=== PATIENT | male | born 1995 | race Caucasian/White ===

== ENCOUNTER 2019-01-27 01:57 | Emergency (ER) | payer BC, MEDICAID ==
[~2019-01-27] VITALS: Ht 170.2 cm; Wt 89.0 kg
--- NOTE | 2019-01-27 02:12 | NUR ---
ASSESSMENT MADE. SEEN BY PA. PATIENT PICKED UP FROM [facility] C/O VOMITING AND UNABLE TO AMBULATE DUE TO ALCOHOL INTOXICATION.
--- NOTE | 2019-01-27 02:31 | NUR ---
PT RESTING ON GURNEY WITH EYES CLOSED, NAD, RESPIRATIONS EVEN AND UNLABORED, MONITORS IN PLACE, SIDERAILS UP X2, CALL LIGHT WITHIN REACH
--- NOTE | 2019-01-27 03:24 | NUR ---
PT RESTING ON GURNEY WITH EYES CLOSED, EQUAL CHEST RISE/FALL OBSERVED, MONITORS IN PLACE, SIDERAILS UP X2, CALL LIGHT WITHIN REACH
--- NOTE | 2019-01-27 04:21 | NUR ---
PT RESTING ON [facility] [place], MONITORS IN PLACE, CALL LIGHT WITHIN REACH. WILL CONTINUE TO MONITOR
[2019-01-27 05:02] VITALS: BP 121/68
--- NOTE | 2019-01-27 05:03 | NUR ---
PT RESTING ON GURNEY, OPENS EYES TO VERBAL RESPONSE AND QUICKLY NODS BACK OFF TO SLEEP. PT CONFUSED TO WHERE HE IS, ERP REORIENTED PT TO PLACE. MONITORS IN PLACE, CALL LIGHT WITHIN REACH
--- NOTE | 2019-01-27 05:30 | NUR ---
PT UP WALKING IN ROOM, A&OX4 ANSWERING ALL QUESTIONS APPROPRIETLY.
== END 2019-01-27 05:43 | disposition home or self-care (01) ==
LOC: EDBD 01:57 → ED 05:30
DX: F10.120 Alcohol abuse with intoxication, uncomplicated (principal)
CPT/HCPCS: 99283